=== PATIENT | female | born 1980 | race Caucasian/White ===

== ENCOUNTER 2022-06-01 08:32 | Outpatient (CLI) | payer BC, SELFPAY ==
--- NOTE | 2022-06-01 08:45 | CRLHL7_ITS ---
For Patients: As a result of the Century Cures Act, medical imaging exams and procedure reports are released immediately into your electronic medical record. You may view this report before your referring provider. If you have questions, please contact your health care provider. DIGITAL DIAGNOSTIC RIGHT MAMMOGRAM USING TOMOSYNTHESIS AND COMPUTER-AIDED DETECTION RIGHT BREAST ULTRASOUND CLINICAL HISTORY: RIGHT breast palpable. COMPARISON: 08/31/2021, 07/14/2020, 05/22/2020, 03/29/2019. TECHNIQUE: Digital RIGHT mammogram in two projections. Tomosynthesis and CAD utilized. Real-time ultrasound imaging of RIGHT breast with imaging documentation. BREAST COMPOSITION: The breast is heterogeneously dense, which may obscure small masses. FINDINGS: Multiple circumscribed masses are present throughout the RIGHT breast compatible with fibrocystic change. In the area palpable concern inferiorly, there is a larger circumscribed mass which is also likely a cyst. No architectural distortion. Scattered benign punctate calcifications. Normal RIGHT axillary lymph nodes which are unchanged. Targeted RIGHT breast ultrasound performed to the area of palpable concern at 6 o`clock 2 cm from the nipple. In this location there is a large, circumscribed cyst measuring 3.2 x 3.1 x 5.0 cm. Mild internal debris is present within this cyst. IMPRESSION: Multifocal fibrocystic change RIGHT breast. Large palpable cyst 6 o`clock 2 cm from the nipple measuring 5 cm with mild inflammation. RECOMMENDATIONS: Ultrasound-guided aspiration of this large 5 cm cyst should be considered. Otherwise, screening mammography of the RIGHT breast in August 2022 recommended. Results and recommendations discussed with the patient. NOTE: The patient also presented with a palpable lump on the LEFT per the referring provider. The patient does not feel this area. Patient declined imaging of this area today due to financial concerns. Clinical follow-up is recommended regarding the LEFT breast. BI-RADS Category 2: Benign A lay language report of this examination will be provided to the patient. Dictated by Derik Flanagan MD @ 06/01/2022 10:33:36 AM /Dictated by: Derik Flanagan MD @ 06/01/2022 10:33:00 AM (Electronically Signed)
--- NOTE | 2022-06-01 09:15 | CRLHL7_ITS ---
For Patients: As a result of the Cures Act, medical imaging exams and procedure reports are released immediately into your electronic medical record. You may view this report before your referring provider. If you have questions, please contact your health care provider. PLEASE SEE DIGITAL DIAGNOSTIC RIGHT MAMMOGRAM PERFORMED SAME DAY CRL:allison cooper/Dictated by: Derik Flanagan MD @ 06/01/2022 10:33:00 AM (Electronically Signed)
== END 2022-06-01 08:33 | disposition home or self-care (01) ==
PROVIDERS: Visit Provider Registered Nurse
DX: N63.10 Unspecified lump in the right breast, unspecified quadrant (principal); N60.01 Solitary cyst of right breast
CPT/HCPCS: 76642; 77065; 77066; G0279

== ENCOUNTER 2023-08-15 09:39 | Outpatient (CLI) | payer BC, SELFPAY ==
--- NOTE | 2023-08-15 09:45 | MM_ITS ---
Patient: MICKIE VELIZ Facility:?[facility] Patient ID:?[id number] Site Patient ID:?[id number]. Site :?[id number] Study:?XRay-Breast Bilateral 3D W/CAD-08/15/2023 10:31:28 AM Ordering Physician:?Beba Boston Final Report: BILATERAL SCREENING MAMMOGRAM WITH COMPUTER-AIDED DETECTION AND TOMOSYNTHESIS TECHNIQUE: CC and MLO views were obtained. These mammographic images have been obtained using full-field digital technique. These mammographic images were interpreted with the benefit of computer-aided detection. Breast tomosynthesis was used in this interpretation. COMPARISON FILM: 06/01/22, 08/31/21, 07/14/20. FINDINGS: The breasts are heterogeneously dense, which may obscure small masses. IMPRESSION: There is no radiographic evidence for malignancy. ASSESSMENT: BI-RADS Category 2: Benign RECOMMENDATION: Routine screening mammogram in 1 year. A lay language report of this examination will be provided to the patient. ANN MARIE CHOWDHURY M.D. Diagnostic Radiologist [email or web address] KELL/[email or web address] D& Transcribed: 6:[address]/Dictated by: Ann Marie Chowdhury MD @ 08/25/2023 12:28:00 PM Signed by:?Ann Marie Chowdhury MD @08/25/2023 8:24:22 PM (Electronic Signature)
== END 2023-08-15 09:40 | disposition home or self-care (01) ==
LOC: MAMMO 09:40
PROVIDERS: Visit Provider Registered Nurse
DX: Z12.31 Encounter for screening mammogram for malignant neoplasm of breast (principal); R92.2 Inconclusive mammogram
CPT/HCPCS: 77063; 77067

== ENCOUNTER 2024-07-25 10:36 | Outpatient (CLI) | payer BC, SELFPAY | END 2024-07-25 10:37 | disposition home or self-care (01) | PROVIDERS: Visit Provider Registered Nurse | DX: Z13.6 Encounter for screening for cardiovascular disorders (principal) | CPT/HCPCS: 80061 ==

== ENCOUNTER 2024-12-19 08:02 | Outpatient (CLI) | payer BC, SELFPAY ==
--- NOTE | 2024-12-19 08:15 | CRLHL7_ITS ---
For Patients: As a result of the Century Cures Act, medical imaging exams and procedure reports are released immediately into your electronic medical record. You may view this report before your referring provider. If you have questions, please contact your health care provider. INDICATION: BILATERAL SCREENING MAMMOGRAM, ASYMPTOMATIC 43 Y/O FEMALE COMPARISON: 08/15/2023, 06/01/2022, 08/31/2021 TECHNIQUE: Digital mammogram in CC and MLO projections including computer-aided detection (CAD) and tomosynthesis. BREAST COMPOSITION: The breasts are heterogeneously dense, which may obscure small masses. FINDINGS: No suspicious findings. ASSESSMENT: BI-RADS 2 Benign RECOMMENDATION: Annual screening mammogram. A lay language report of this examination will be provided to the patient. Dictated by: Tia Donovan MD @ 12/20/2024 11:19:10 (Electronically Signed)
== END 2024-12-19 08:03 | disposition home or self-care (01) ==
LOC: MAMMO 08:02
PROVIDERS: Visit Provider Registered Nurse
DX: Z12.31 Encounter for screening mammogram for malignant neoplasm of breast (principal); R92.333 Mammographic heterogeneous density, bilateral breasts
CPT/HCPCS: 77063; 77067